=== PATIENT | male | born 1945 | race Caucasian/White ===

== ENCOUNTER 2016-07-12 14:55 | Emergency (ER) | payer MEDICARE, OTHER ==
[2016-07-12 15:01] VITALS: BP 153/81
--- NOTE | 2016-07-12 15:53 | ED Physician Documentation ---
PD HPI HEENT - Stated complaint Stated Complaint: F/O IN GUMS - Chief complaint Chief Complaint: Heent - History obtained from History obtained from: Patient - History of Present Illness Timing - onset: How many hours ago (couple), Today Timing - details: Abrupt onset (he was eating nuts and feels a small piece got stuck under area of mucosa/soft tissue lingual side gum lower.) Worsens: Swalllowing Associated symptoms: No: Fever, Swollen nodes Recently seen: Not recently seen Review of Systems Nose: denies: Rhinorrhea / runny nose, Congestion Throat: denies: Sore throat, Swollen tonsils Respiratory: denies: Cough PD PAST MEDICAL HISTORY - Past Medical History Neuro: None Endocrine/Autoimmune: None - Allergies Allergies/Adverse Reactions: Allergies Allergy/AdvReac Type Severity Reaction Status Date / Time No Known Drug Allergies Allergy Verified 07/12/16 15:00 PD ED PE NORMAL - Vitals Vital signs reviewed: Yes - General General: Alert and oriented X 3, No acute distress, Well developed/nourished - HEENT HEENT: Pharynx benign, Dentition benign, Other (He has areas of gingival swelling and also "lumpy" areas of mucosa under tongue with normal appearance on the surface. He says these are normal. It creates a crevis behind/under that area, which is where he sasy he feels something. I cannot visualize FB per se. ) - Neck Neck: Supple, no meningeal sign, No adenopathy Results - Vitals Vitals: Vital Signs - 24 hr 07/12/16 14:58 Temperature 36.7 C Heart Rate 88 Respiratory 16 Rate Blood Pressure 153/81 H O2 Saturation 97 Oxygen O2 Source Room air PD MEDICAL DECISION MAKING - ED course Complexity details: considered differential (using dental mirror and blunt probe , I swept in the crevis he refers and did not feel/get any FB. There is gingival swelling. Referred him to see dentist tomorrow. ), d/w patient Departure - Departure Disposition: 01 Home, Self Care Clinical Impression: Gingival foreign body Qualifiers: Encounter type: initial encounter Qualified Code(s): S00.552A - Superficial foreign body of oral cavity, initial encounter Condition: Stable Record reviewed to determine appropriate education?: Yes Follow-Up: Jaren Maynard MD [Primary Care Provider] - Comments: Sorry I could not see/ get at the piece of nut you are feeling. There is some inflammation of the gum/tissue in the area, so use some antiseptic mouth rinse every few hours. Follow up with dentist tomorrow as they will have more appropriate tools for this. Discharge Date/Time: 07/12/16 17:07
== END 2016-07-12 17:07 | disposition home or self-care (01) ==
LOC: ED 14:55
DX: T18.0XXA Foreign body in mouth, initial encounter (principal); X58.XXXA Exposure to other specified factors, initial encounter
CPT/HCPCS: 99282; 99283

== ENCOUNTER 2020-08-09 12:37 | Emergency (ER) | payer MEDICARE ==
[2020-08-09 12:45] VITALS: BP 146/77
[2020-08-09] MEDS ORDERED: BUFFERED LIDOCAINE 10 ML SYRINGE SUBQ STA (12:50)
--- NOTE | 2020-08-09 12:57 | ED Physician Documentation ---
History of Present Illness - Stated complaint Stated Complaint: LT HAND INJ - Chief complaint Chief Complaint: Laceration - History obtained from History obtained from: Patient - History of Present Illness Timing: Today Pain level max: 3 Pain level now: 3 - Additonal information Additional information: Patient is a 75-year-old male, right-handed who presents to the emergency department after a laceration to the left palm. This was while opening a box full of cabinetry. Tetanus is up-to-date. Nothing makes it better or worse. Review of Systems Constitutional: denies: Fever, Chills Skin: denies: Rash PD PAST MEDICAL HISTORY - Past Medical History Cardiovascular: Hypertension Respiratory: None Endocrine/Autoimmune: None GI: None : None Psych: None Musculoskeletal: None Derm: None - Past Surgical History Past Surgical History: Yes General: Appendectomy, Other Ortho: Rotator cuff repair - Present Medications Home Medications: Ambulatory Orders Medication Instructions Recorded Confirmed Atorvastatin Calcium 1 tab PO DAILY 08/09/20 08/09/20 Lisinopril [Zestril] 1 tab PO DAILY 08/09/20 08/09/20 Sertraline [Zoloft] 1 tab PO DAILY 08/09/20 08/09/20 amLODIPine [Norvasc] 1 tab PO DAILY 08/09/20 08/09/20 - Allergies Allergies/Adverse Reactions: Allergies Allergy/AdvReac Type Severity Reaction Status Date / Time No Known Drug Allergies Allergy Verified 08/09/20 12:45 - Social History Does the pt smoke?: No Smoking Status: Never smoker Does the pt drink ETOH?: Yes Does the pt have substance abuse?: No - Immunizations Immunizations are current?: Yes - POLST Patient has POLST: No PD ED PE NORMAL - Vitals Vital signs reviewed: Yes - General General: Alert and oriented X 3, No acute distress - HEENT HEENT: Moist mucous membranes - Derm Derm: Warm and dry - Extremities Extremities: Other (L hand - Laceration to the ulnar aspect of the palm. About 3 cm in length. Into the fatty tissue. Neurovascular intact. No tendon injury) - Neuro Neuro: Alert and oriented X 3 - Psych Psych: Normal mood, Normal affect Results - Vitals Vitals: Vital Signs - 24 hr 08/09/20 12:39 Temperature 36.7 C Heart Rate 76 Respiratory 16 Rate Blood Pressure 146/77 H O2 Saturation 95 Oxygen O2 Source Room air Procedures - Laceration (location) L palm Length in cm: 3 Wound type: Linear, Into subcut fat, Clean Neurovascular status: Sensory intact, Motor intact, Vascular intact Tendon involvement: Tendon intact Anesthesia: Lidocaine 1%, With bicarb Wound preparation: Irrigated copiously NS, Wound explored, To the base Skin layer closure: Nylon, Interrupted, Size #[id number] - enter number (4) Other: Patient tolerated well, No complications, Neurovascular intact, Dressing applied, Tetanus UTD PD MEDICAL DECISION MAKING - ED course Complexity details: considered differential, d/w patient ED course: Laceration repaired. Tolerated well. Warnings of infection and instructions on wound care given at bedside. Also counseled on how to minimize scarring. Patient counseled regarding signs and symptoms for which I believe and urgent re-evaluation would be necessary. Patient with good understanding of and agreement to plan and is comfortable going home at this time This document was made in part using voice recognition software. While efforts are made to proofread this document, sound alike and grammatical errors may occur. Departure - Departure Disposition: 01 Home, Self Care Clinical Impression: Hand laceration Qualifiers: Encounter type: initial encounter Foreign body presence: without foreign body Laterality: left Qualified Code(s): S61.412A - Laceration without foreign body of left hand, initial encounter Condition: Good Instructions: ED Laceration Hand Follow-Up: Chris Quarles MD [Primary Care Provider] - (in 10-14 days for suture removal ) Comments: Follow-up with your doctor in 10 to 14 days for suture removal. Keep the wound clean. Return for redness, swelling or drainage from the wound. Discharge Date/Time: 08/09/20 13:15
== END 2020-08-09 13:15 | disposition home or self-care (01) ==
LOC: ED 12:37
DX: S61.412A Laceration without foreign body of left hand, initial encounter (principal); W26.0XXA Contact with knife, initial encounter; I10 Essential (primary) hypertension
CPT/HCPCS: 12002; 99282